=== PATIENT | female | born 1940 | race Caucasian/White ===

== ENCOUNTER 2018-01-17 10:30 | Outpatient (RCR) | payer OTHER, MEDICARE, SELFPAY | END 2018-03-27 09:36 | disposition home or self-care (01) | LOC: PT 10:30 | PROVIDERS: Visit Provider Family Medicine | DX: J44.9 Chronic obstructive pulmonary disease, unspecified (principal) | CPT/HCPCS: G0424 ==

== ENCOUNTER 2020-05-24 22:20 | Emergency (ER) | payer OTHER, MEDICARE, SELFPAY ==
[2020-05-24 22:22] VITALS: BP 186/83; PULSE 70; RESP 20; TEMP 37.1; O2SAT 99; BMI 23.6
--- NOTE | 2020-05-24 23:09 | HMH.EDNVD ---
ED Disposition Clinical Impression: Methemoglobinemia Pancreatic cancer Qualifiers: Pancreatic malignancy location: unspecified Qualified Code(s): C25.9 - Malignant neoplasm of pancreas, unspecified Disposition: Home, Self-Care Condition on Discharge: Good Instructions: DI for Nausea -- Adult Additional Instructions: fluids and see pcp for follow up and call oncology Referrals: Mohsen Maurer MD [Primary Care Provider] - - Critical Care Critical Care Time: No Attestation: On 05/24/20, the high probability of a clinically significant, sudden or life threatening deterioration of the following system(s) required my full and direct attention, intervention and personal management. The time I documented below is in addition to time spent performing reported procedures but includes the following listed in this critical care notation. Medical Decision Making - Medical Records Medical records reviewed: Yes: I reviewed the patient's medical records. - Tom Inquiry Pt receiving controlled substance: No Vital Signs: 05/24/20 22:22 05/24/20 23:22 05/24/20 23:53 Temperature 98.7 F Temperature Source Oral Pulse Rate [Right Radial] 70 63 65 Respiratory Rate 20 18 18 Blood Pressure [Right Arm] 186/83 H 169/91 H 164/88 H Blood Pressure Mean [Right Arm] 117 117 113 Blood Pressure Source [Right Arm] Automatic Cuff Blood Pressure Position [Right Arm] Supine 02 Sat by Pulse Oximetry 99 97 98 Oxygen Delivery Method Room Air - Lab Data Lab results reviewed: Yes: I reviewed the patient's lab results. Lab Results 05/24/20 23:00: WBC 6.0, RBC 4.05 L, Hgb 12.4, Hct 36.7 L, MCV 90.5, MCH 30.6, MCHC 33.9, RDW 15.1, Plt Count 325, MPV 8.5, Neut % (Auto) 78.5, Lymph % (Auto) 13.2, [place] % (Auto) 6.4, Eos % (Auto) 1.0, Baso % (Auto) 0.9, Neut # (Auto) 4.7, Lymph # (Auto) 0.8, [place] # (Auto) 0.4, Eos # (Auto) 0.1, Baso # (Auto) 0.1 05/24/20 23:00: Sodium 135 L, Potassium 3.8, Chloride 98, Carbon Dioxide 32 H, Anion Gap 8.8, BUN 22 H, Creatinine 0.50 L, Estimated Creat Clear 47, Estimated GFR 120, Est GFR ( Amer) 145, Glucose 144 H, Calcium 10.4 H, Total Bilirubin 0.5, AST 37 H, ALT 22, Alkaline Phosphatase 171 H, Total Protein 6.9, Albumin 4.0, Globulin 2.9, Albumin/Globulin Ratio 1.4, Amylase 32, Lipase 11 L Result diagrams: 05/24/20 23:00 05/24/20 23:00 Orders (Tests/Meds): ED MEDICATIONS Generic Name Dose Route Start Last Admin Trade Name Freq PRN Reason Stop Dose Admin Sodium Chloride 1,000 mls @ 999 mls/hr 05/24/20 23:00 05/24/20 23:07 Sod Chlor 0.9% 1000ml Bag IV 05/25/20 00:00 999 mls/hr .Q1H1M ROMARIO Administration Sodium Chloride 1,000 mls @ 999 mls/hr 05/25/20 00:30 Sod Chlor 0.9% 1000ml Bag IV 05/25/20 01:30 .Q1H1M ROMARIO Discontinued Medications Generic Name Dose Route Start Last Admin Trade Name Freq PRN Reason Stop Dose Admin Morphine Sulfate 4 mg 05/25/20 00:29 05/25/20 00:34 Morphine 4mg/Ml Syringe IV 05/25/20 00:30 4 mg ONCE ONE Administration Ondansetron HCl 4 mg 05/24/20 22:50 05/24/20 23:04 Zofran 4mg/2ml Vial IV 05/24/20 22:51 4 mg ONCE ONE Administration Promethazine HCl 12.5 mg 05/25/20 00:14 05/25/20 00:14 Phenergan 25mg/Ml 1ml Vial IV 05/25/20 00:15 12.5 mg ONCE ONE Administration Sodium Chloride 25 ml 05/25/20 00:14 05/25/20 00:14 Sod Chlor 0.9% 25ml Bag IV 05/25/20 00:15 25 ml ONCE ONE Administration ORDERS Category Date Time Status CT abdomen pelvis w con Stat Cat Scan 05/25/20 00:01 Ordered Nausea/Vomiting/Diarrhea HPI - General Chief complaint: Nausea/Vomiting/Diarrhea Stated complaint: Vomiting, CA patient, has port in Time Seen by Provider: 05/24/20 23:00 Mode of Arrival: Wheelchair Source of Information: Patient, Spouse, Medical Record Limitations: No Limitations Description of Symptoms (Recalled from ER Triage Doc. by RN): Pt is current chemo pt r/t pancreatic cancer and reports N/V
[2020-05-24 23:17] LABS: Basophils # 0.1 K/mm3 (0-0.2); Basophils % 0.9 % (0.1-2.0); Eosinophils # 0.1 K/mm3 (0.0-0.4); Hematocrit 36.7 % (37.0-47.0); Hemoglobin 12.4 g/dL (12.2-16.2); Lymphocytes # 0.8 K/mm3 (0.7-4.5); Lymphocytes % 13.2 % (10-50); Mean Corpuscular HGB Conc 33.9 g/dL (31.8-35.4); Mean Corpuscular Hemoglobin 30.6 pg (27.0-31.2); Mean Corpuscular Volume 90.5 fl (81-99); Mean Platelet Volume 8.5 fl (7.4-10.4); Monocytes # 0.4 K/mm3 (0.1-1.0); Monocytes % 6.4 % (1.7-9.3); Neutrophils # 4.7 K/mm3 (1.8-7.8); Neutrophils % 78.5 % (37.0-80.0); Platelet Count 325 K/mm3 (142-424); Red Blood Count 4.05 M/mm3 (4.20-5.40); Red Cell Distribution Width 15.1 % (11.5-17.5)
[2020-05-24 23:22] VITALS: BP 169/91; PULSE 63; RESP 18; O2SAT 97
[2020-05-24 23:27] LABS: Alanine Aminotransferase 22 U/L (12-78); Albumin/Globulin Ratio 1.4 (1.1-1.8); Alkaline Phosphatase 171 U/L (38-126); Amylase 32 U/L (30-110); Anion Gap 8.8 mEq/L (5-15); Aspartate Amino Transferase 37 U/L (14-36); Bilirubin,Total 0.5 mg/dl (0.2-1.3); Blood Urea Nitrogen 22 mg/dl (7-17); Calcium 10.4 mg/dl (8.4-10.2); Carbon Dioxide 32 mmol/L (22.0-30.0); Chloride 98 mmol/L (98-107); Creatinine Clearance Estimated 47 mL/min (50-200); Estimated Glomerular Filt Rate 120 ml/min (>60); GFR (African American) 145 ML/MIN (>60); Globulin 2.9 g/dL (1.3-3.2); Glucose 144 mg/dl (74-100); Lipase 11 U/L (23-300); Potassium 3.8 mmoL/L (3.5-5.1); Sodium 135 mmol/L (136-145); Total Protein,Serum 6.9 g/dl (6.3-8.2)
[2020-05-24 23:53] VITALS: BP 164/88; PULSE 65; RESP 18; O2SAT 98
[2020-05-25 00:30] VITALS: BP 171/80; PULSE 62; RESP 18; O2SAT 95
[2020-05-25 01:16] VITALS: BP 165/79; PULSE 67; RESP 18; O2SAT 96
[2020-05-25 01:21] VITALS: BP 165/79; PULSE 85; RESP 15; TEMP 36.7; O2SAT 98
== END 2020-05-25 01:29 | disposition home or self-care (01) ==
PROVIDERS: Emergency Provider Emergency Medicine; PCP Family Medicine
DX: C25.9 Malignant neoplasm of pancreas, unspecified (principal); D74.9 Methemoglobinemia, unspecified; J44.9 Chronic obstructive pulmonary disease, unspecified; I10 Essential (primary) hypertension; Z79.899 Other long term (current) drug therapy; Z88.2 Allergy status to sulfonamides
CPT/HCPCS: 80053; 82150; 83690; 85025; 96365; 96366; 96375; 99283; J2405

== ENCOUNTER 2020-06-19 05:56 | Observation (INO) | payer OTHER, MEDICARE, SELFPAY ==
[2020-06-19] VITALS (11 sets, daily range): BP systolic 158–181; BP diastolic 78–103; PULSE 77–104; RESP 15–22; TEMP 36.4–37.1; O2SAT 91–99; BMI 20.5; BMI 23.0
--- NOTE | 2020-06-19 06:09 | HMH.EDGENADL ---
ED Disposition Clinical Impression: Hypokalemia, Nausea Pancreatic cancer Qualifiers: Pancreatic malignancy location: unspecified Qualified Code(s): C25.9 - Malignant neoplasm of pancreas, unspecified Abdominal pain Qualifiers: Abdominal location: generalized Qualified Code(s): R10.84 - Generalized abdominal pain Disposition: Admitted as Observation Condition on Discharge: Fair Referrals: Mohsen Maurer MD [Primary Care Provider] - - Critical Care Critical Care Time: No Attestation: On 06/19/20, the high probability of a clinically significant, sudden or life threatening deterioration of the following system(s) required my full and direct attention, intervention and personal management. The time I documented below is in addition to time spent performing reported procedures but includes the following listed in this critical care notation. Medical Decision Making - Medical Records Medical records reviewed: Yes: I reviewed the patient's medical records. MR Comment: Seen in this emergency department on 05/24/2020 for nausea and vomiting. Diagnosed with methemoglobinemia as well. - Tom Inquiry Pt receiving controlled substance: Yes Tom was queried for this patient: No Reason not queried -: Emergent pt cond-no time Risks and benefits of using a controlled substance: were not discussed with pt by me Vital Signs: 06/19/20 06:03 Temperature 97.8 F Temperature Source Oral Pulse Rate [Right Brachial] 89 Respiratory Rate 15 Blood Pressure [Right Arm] 181/92 H Blood Pressure Mean [Right Arm] 121 Blood Pressure Source [Right Arm] Automatic Cuff Blood Pressure Position [Right Arm] Sitting 02 Sat by Pulse Oximetry 98 Oxygen Delivery Method Room Air - Lab Data Lab Results 06/19/20 06:10: WBC 11.4 H, RBC 4.29, Hgb 12.4, Hct 39.5, MCV 92.1, MCH 28.9, MCHC 31.4 L, RDW 15.1, Plt Count 385, MPV 8.4, Neut % (Auto) 86.2 H, Lymph % (Auto) 6.1 L, [place] % (Auto) 5.5, Eos % (Auto) 1.9, Baso % (Auto) 0.3, Neut # (Auto) 9.8 H, Lymph # (Auto) 0.7, [place] # (Auto) 0.6, Eos # (Auto) 0.2, Baso # (Auto) 0.0, Total Counted 100, Neutrophils % (Manual) 88 H, Band Neutrophils % 2.0, Lymphocytes % (Manual) 5 L, Monocytes % (Manual) 5, Platelet Estimate Normal, RBC Morphology Normal 06/19/20 06:10: Sodium 134 L, Potassium 3.0 L, Chloride 98, Carbon Dioxide 30, Anion Gap 9.0, BUN 21 H, Creatinine 0.50 L, Estimated Creat Clear 40, Estimated GFR 120, Est GFR ( Amer) 145, Glucose 125 H, Calcium 9.3, Total Bilirubin 0.6, AST 41 H, ALT 18, Alkaline Phosphatase 167 H, Total Protein 5.9 L, Albumin 3.3 L, Globulin 2.6, Albumin/Globulin Ratio 1.3 06/19/20 06:10: Lactate 1.1 06/19/20 06:10: Lipase 10 L Result diagrams: 06/19/20 06:10 06/19/20 06:10 Orders (Tests/Meds): ED MEDICATIONS Discontinued Medications Generic Name Dose Route Start Last Admin Trade Name Freq PRN Reason Stop Dose Admin Hydromorphone HCl 1 mg 06/19/20 06:20 06/19/20 06:22 Hydromorphone 2mg/Ml Syringe IV 06/19/20 06:21 1 mg ONCE ONE Administration Sodium Chloride 1,000 mls @ 999 mls/hr 06/19/20 06:30 06/19/20 06:23 Sod Chlor 0.9% 1000ml Bag IV 06/19/20 07:30 999 mls/hr .Q1H1M ROMARIO Administration Ondansetron HCl 4 mg 06/19/20 07:26 06/19/20 07:27 Ondansetron 4mg/2ml Vial IV 06/19/20 07:27 4 mg ONCE ONE Administration Potassium Chloride 40 meq 06/19/20 07:10 06/19/20 07:19 Potassium Chloride 20meq Tab PO 06/19/20 07:11 40 meq ONCE ONE Administration Promethazine HCl 12.5 mg 06/19/20 06:20 06/19/20 06:24 Promethazine Hcl 25mg/Ml 1ml Vial IV 06/19/20 06:21 12.5 mg ONCE ONE Administration Sodium Chloride 25 ml 06/19/20 06:20 06/19/20 06:24 Sodium Chloride 0.9% 25ml Bag IV 06/19/20 06:21 25 ml ONCE ONE Administration ORDERS Category Date Time Status Blood Culture Stat Micro 06/19/20 06:10 Received - Physician Consults Physician Consulted: Libertad Time: 08:02 Reason -: Admission Comm
[2020-06-19 06:24] LABS: Basophils % 0.3 % (0.1-2.0); Eosinophils # 0.2 K/mm3 (0.0-0.4); Eosinophils % 1.9 % (0.1-12.0); Hematocrit 39.5 % (37.0-47.0); Hemoglobin 12.4 g/dL (12.2-16.2); Lymphocytes # 0.7 K/mm3 (0.7-4.5); Lymphocytes % 6.1 % (10-50); Mean Corpuscular HGB Conc 31.4 g/dL (31.8-35.4); Mean Corpuscular Hemoglobin 28.9 pg (27.0-31.2); Mean Corpuscular Volume 92.1 fl (81-99); Mean Platelet Volume 8.4 fl (7.4-10.4); Monocytes # 0.6 K/mm3 (0.1-1.0); Monocytes % 5.5 % (1.7-9.3); Neutrophils # 9.8 K/mm3 (1.8-7.8); Neutrophils % 86.2 % (37.0-80.0); Platelet Count 385 K/mm3 (142-424); Red Blood Count 4.29 M/mm3 (4.20-5.40); Red Cell Distribution Width 15.1 % (11.5-17.5); White Blood Count 11.4 K/mm3 (4.8-10.8)
[2020-06-19 06:30] LABS: Chloride 98 mmol/L (98-107); Sodium 134 mmol/L (136-145)
[2020-06-19 06:31] LABS: MANUAL DIFFERENTIAL MANUAL DIFFERENTIAL (MANUAL DIFF)
[2020-06-19 06:33] LABS: Alanine Aminotransferase 18 U/L (12-78); Albumin Level 3.3 g/dl (3.5-5.0); Albumin/Globulin Ratio 1.3 (1.1-1.8); Alkaline Phosphatase 167 U/L (38-126); Aspartate Amino Transferase 41 U/L (14-36); Bilirubin,Total 0.6 mg/dl (0.2-1.3); Blood Urea Nitrogen 21 mg/dl (7-17); Carbon Dioxide 30 mmol/L (22.0-30.0); Creatinine Clearance Estimated 40 mL/min (50-200); Estimated Glomerular Filt Rate 120 ml/min (>60); GFR (African American) 145 ML/MIN (>60); Globulin 2.6 g/dL (1.3-3.2); Lactic Acid 1.1 mmol/L (0.7-2.1); Total Protein,Serum 5.9 g/dl (6.3-8.2)
[2020-06-19 06:34] LABS: Calcium 9.3 mg/dl (8.4-10.2); Glucose 125 mg/dl (74-100); Lipase 10 U/L (23-300)
--- NOTE | 2020-06-19 07:06 | PC.NURSE ---
report given to ryan zamudio, and jnrn
[2020-06-19 07:18] LABS: Lymphocytes % 5 % (10-50); Monocytes % 5 % (2-9); Neutrophils % 88 % (42-76); Platelet Estimate Normal; RBC Morphology Normal; Total Cells Counted 100
--- NOTE | 2020-06-19 07:32 | PC.NURSE ---
Dr Libertad nj
[2020-06-19 09:00] LABS: Coronavirus 19 IgG Antibody Negative (Negative); Coronavirus 19 IgM Antibody Negative (Negative)
--- NOTE | 2020-06-19 09:12 | P.CONPHA_ITS ---
[facility] Pharmacy VTE Monitoring - Patient Demographics Admission date: 06/19/20 Report Date: 06/19/20 Time: 09:12 Allergies/Adverse Reactions: Patient Allergies Sulfa (Sulfonamide Antibiotics) Allergy (Mild, Verified 06/01/20 14:27) simvastatin Allergy (Verified 06/01/20 15:04) rib pain lisinopril Adverse Reaction (Severe, Verified 06/01/20 14:27) Cough rivaroxaban [From Xarelto] Adverse Reaction (Unknown, Verified 06/01/20 14:27) Height: 1.63 m Weight: 54.431 kg Patient Problems: Current Active Problems Hypokalemia (Acute) Nausea (Acute) Abdominal pain (Acute) Pancreatic cancer (Acute) - VTE Risk Labs: VTE Related Lab Results Hgb 12.4 g/dL (12.2-16.2) 06/19/20 06:10 Hct 39.5 % (37.0-47.0) 06/19/20 06:10 Plt Count 385 K/mm3 (142-424) 06/19/20 06:10 BUN 21 mg/dl (7-17) H 06/19/20 06:10 Creatinine 0.50 mg/dl (0.52-1.04) L 06/19/20 06:10 Estimated Creat Clear 40 mL/min (50-200) 06/19/20 06:10 Clinical Trial Participant: No - Prophylaxis VTE Prophylaxis Ordered?: Yes Types of VTE Prophylaxis: TEDS Knee High
--- NOTE | 2020-06-19 09:44 | PC.NURSE ---
report to sheldon gonsales rn
--- NOTE | 2020-06-19 11:35 | HMH.PHAINT ---
HOME MEDICATION RECONCILIATION COMPLETED USING LIST FROM [facility] AND AFTER INTERVIEWING PT.
--- NOTE | 2020-06-19 15:02 | PC.NURSE ---
PT IS RESTING IN BED WITH FAMILY AT BEDSIDE. WHEN I WENT TO GET PT FROM THE ED THEY STATED THAT CODE STATUS WAS DISCUSSED AND SHE WANTED TO BE A DNR. DURING ADMISSION CODE STATUS WAS ADDRESSED AND PT'S STATED PT WAS VERY TIRED DOWN IN THE ED WHEN CODE STATUS WAS BROUGHT UP. PT'S ALSO STATED THAT PALLATIVE CARE WAS BROUGHT UP TO THEM WHEN HER DOCTOR'S DECIDED BACK IN THAT CHEMOTHERAPY TREATMENT WAS NO LONGER AN OPTION. . I EXPLAINED THE DNR FORM/HOSPICE CARE TO PT AND AND PT BECAME VERY TEARFUL AND STATED THAT SHE WOULD LIKE TO TALK WITH HER 2 BROTHERS BEFORE SHE MADE ANY DECISIONS ABOUT DNR STATUS OR HOSPICE CARE. PT'S HAS CALLED THE TWO BROTHERS AND THEY ARE SUPPOSE TO BE COMING TO THE HOSPITAL. PT HAS RECEIVED MORPHINE NEEDED FOR PAIN. PT IS STILL VERY NAUSEATED. PCP OFFICE NOTIFIED TO GET SOMETHING ADDITIONAL ORDERED FOR NAUSEA. PT'S FACE IS VERY CYANOTIC WHICH THEY SAY IS RELATED TO PT'S CONDITION METHEMOGLOBINEMIA. O2 SATURATION HAS MAINTAINED 91-95% ON ROOM AIR. OXYGEN AT BEDSIDE IF NEEDED. AMBULATES TO THE BATHROOM WITH 1 ASSIST. LUNG SOUNDS CLEAR. ABDOMEN DISTENDED WITH TENDERNESS ON PALPATION. HYPOACTIVE BOWEL SOUNDS. PT STATES SHE HAS A CHRONIC PROBLEM WITH CONSTIPATION.
--- NOTE | 2020-06-19 16:39 | SW/DCPLANNER ---
Addendum entered by Zaida Baltazar 06/23/20 06:37: PATIENT IS TO GO TO THE [facility]ARE [facility] IN [place].... I SPOKE WITH HER YESTERDAY SEVERAL TIMES AND HER ONLY CONCERN WAS SHE WANTED TO BE ABLE TO HAVE VISITORS... I CALLED AND THE DIRECTOR STATED SHE COULD HAVE UP TO 3 PPL TO VISIT WITH HER AT A TIME... PATIENTS ONLY CONCERN.. SHE WAS SITTING UP IN THE BED AND AT BEDSIDE... NURSE FROM [place] CAME TO EVALUATE. Addendum entered by Zaida Baltazar 06/22/20 11:04: SENT UPDATES TO [facility] IN [place] TO COORDINATE WITH FAMILY HER NEEDS AT HOME... SHE MAY DISCHARGE HOME LATER THIS AFTERNOON ONCE DR ROSS SPEAKS WITH THE HOSPICE MD... Original Note: Dr Ross has called me this afternoon to speak with patient and family regarding [facility] services. Patient and family are agreeable to hospice services at this time. I have spoke with Minoo Daigle at [facility] whom has stated that patient information has been reviewed and she would have promotions producer nurse admit this patient to [facility] services once she is discharged home. I will leave a message with nursing staff for the weekend to make sure to call on-call nurse on morning of discharge ( ). I will also leave steward/stewardess economy class a message to fax all information to [facility] at [phone]. [facility] does understand that patient will discharge over the weekend and has confirmed that promotions producer nurse for [facility] will evaluate patient on day of discharge at home. I have made patient, family and Dr Ross aware of this plan. Patients physical address is [address] [place] [address] in [place] [address].
--- NOTE | 2020-06-19 18:16 | HMH.HP ---
*Admission Date: 06/19/20 *Chief complaint: pancreatic cancer *History of present illness: Established history of cancer pancreas with aggressive course of chemo at . No feasible surgical options, and despite chemo the tumor markers escalated and tumor mass increased progressively and relentlessly. Her oncologist decided to stop aggressive treatment and palliate. She presented to the er with intractable nausea and pain. Given dilaudid this morning, and subsequent pain has been modulated by morphine. Nausea is at the moment controlled via phenergan. [facility] History Medical History: Reports:: Asthma, Cancer (pancreatic cancer), Chronic Obstructive Pulmonary Disease (COPD), Hypertension, Renal Disease Denies:: Diabetes Mellitus Type 1, Diabetes Mellitus Type 2, Internal Pacemaker, MRSA *Have you ever received a pneumonia vaccine?: No *Have you received a flu vaccine this season?: No Other Medical History: Reports: Anemia, Arthritis, Chemotherapy Laterality Cases: Bilateral: Tonsillectomy Other Surgeries: Yes: Colonoscopy, Dilation and Curettage, Tubal Ligation. No: Pacemaker Amputation: No Fractures: No - *Social History Last grade of school completed: Advanced degree Smoking Status: Never smoker Alcohol Intake: never Substance Use Type: denies use *Occupational Status:: retired Housing: house Household Members: spouse *Travel in the last 8 weeks: None Family Hx:: Hypertension, Stroke Review of Systems - Constitutional Reports anorexia, Reports body ache(s), Reports fatigue, Reports lack of energy, Reports malaise, Reports weakness, Reports weight loss - Eyes Denies change in vision - ENT Reports dry mouth, Reports headache(s) - *Cardiovascular Reports shortness of breath - *Respiratory Reports chest congestion, Reports pain with cough - *Gastrointestinal Reports abdominal pain, Reports bloating, Reports constipation, Reports cramping, Reports feeling full early, Reports nausea, Reports vomiting - *Genitourinary Denies difficulty starting urination - *Musculoskeletal Reports abnormal walking, Reports decreased muscle mass, Reports muscle weakness, Reports body aches - Integumentary/Breasts Reports change in skin color - *Neurologic Reports abnormal walking, Reports unsteadiness, Reports weakness - Psychiatric Reports lack of enjoyment, Reports change in appetite, Reports difficulty concentrating, Reports hopelessness, Reports mood swings - Endocrine Reports increased thirst, Denies increased hunger - Hematologic/Lymphatic Reports easy bruising - Allergic/Immunologic Reports GI upset with certain foods Meds Home Medications Medication Instructions Recorded Confirmed Type amlodipine 2.5 mg tablet 2.5 mg PO DAILY 04/17/20 06/19/20 History Lipase/Protease/Amylase [Zenpep Dr 1 cap PO TID 05/24/20 06/19/20 History 20,000 Unit Capsule] Morphine Sulfate [Morphine Sulf IR 7.5 mg PO Q6HP PRN 05/24/20 06/19/20 History 15mg Tab] Tiotropium [place] [Spiriva 1 inh IH DAILY 05/24/20 06/19/20 History 18mcg/puff inhaler] haloperidol 5 mg tablet 5 mg PO BID PRN #60 tab 06/01/20 06/19/20 Rx promethazine 25 mg rectal 25 mg WV Q4-6H PRN #12 each 06/01/20 06/19/20 Rx suppository Budesonide/Formoterol Fumarate 2 puffs IH BID 06/19/20 06/19/20 History [Symbicort 80-4.5 Mcg Inhaler] Dronabinol 5 mg PO BIDP PRN 06/19/20 06/19/20 History Magnesium Citrate [Magnesium 150 ml PO DAILYP PRN 06/19/20 06/19/20 History Citrate 10oz Bottle] Morphine Sulfate [Roxanol 20mg/mL 5 - 20 mg PO Q6HP PRN 06/19/20 06/19/20 History 1mL oral soln UDC] Nystatin 5 ml PO TID PRN 06/19/20 06/19/20 History OLANZapine [Olanzapine] 2.5 mg PO HS 06/19/20 06/19/20 History Allergies Allergy/AdvReac Type Severity Reaction Status Date / Time Sulfa (Sulfonamide Allergy Mild Verified 06/01/20 14:27 Antibiotics) simvastatin Allergy rib pain Verified 06/01/20 15:04 lisinopril AdvReac Severe Cough Verified 06/01/20 14:2
--- NOTE | 2020-06-19 18:32 | PC.NURSE ---
pt and family have agreed to go home with hospice when ready for discharge. pt stated she just wants to be kept comfortable. DNR signed and on the chart. PCP ordered zofran 4 mg IV and phenergan 25 mg IV q2h prn for nausea.
--- NOTE | 2020-06-19 20:20 | PC.NURSE ---
PT REFUSING TO TAKE MEDICATIONS AT THIS TIME STATING THAT HER STOMACH HURTS. DENIES ANY FURTHER AT THIS TIME. WILL CONTINUE TO OBSERVE.
[2020-06-20 04:00] VITALS: BP 176/97; PULSE 89; RESP 20; TEMP 37.1; O2SAT 98
--- NOTE | 2020-06-20 04:11 | PC.NURSE ---
Pt has slept most of the shift. Has c/o of back and generalized pain twice. Morphine administered with good effectiveness. Denies nausea. Lung sounds remain clear. No other s/sx distress noted.
[2020-06-20 05:05] VITALS: BMI 22.1
[2020-06-20 07:01] LABS: Chloride 103 mmol/L (98-107)
[2020-06-20 07:02] LABS: Potassium 3.9 mmoL/L (3.5-5.1); Sodium 134 mmol/L (136-145)
[2020-06-20 07:05] LABS: Anion Gap 9.9 mEq/L (5-15); Blood Urea Nitrogen 19 mg/dl (7-17); Calcium 8.4 mg/dl (8.4-10.2); Carbon Dioxide 25 mmol/L (22.0-30.0); Creatinine Clearance Estimated 44 mL/min (50-200); Estimated Glomerular Filt Rate 155 ml/min (>60); GFR (African American) 187 ML/MIN (>60); Glucose 71 mg/dl (74-100)
[2020-06-20 07:55] VITALS: BP 159/99; PULSE 90; RESP 20; TEMP 36.7; O2SAT 97
--- NOTE | 2020-06-20 13:14 | HMH.ACPN2 ---
Internal Medicine - PN: Subj *Date: 06/20/20 *Time: 13:23 Interval history: continues to have pain and nausea dilaudid in er yesterday helped more than the morphine formally dnr status very tearful/anxious baseline color k=3.9 ivf at 100 will escalate pain and nausea coverage Exam Vital signs and Labs for Last 24 Hours: Temp Pulse Resp BP Pulse Ox 98.0 F 90 20 159/99 H 97 06/20/20 07:55 06/20/20 07:55 06/20/20 07:55 06/20/20 07:55 06/20/20 07:55 Laboratory Results - last 24 hr 06/20/20 05:45: Sodium 134 L, Potassium 3.9 D, Chloride 103, Carbon Dioxide 25, Anion Gap 9.9, BUN 19 H, Creatinine 0.40 L, Estimated Creat Clear 44, Estimated GFR 155, Est GFR ( Amer) 187 D, Glucose 71 L D, Calcium 8.4 I & O for Last 24 hours: Intake & Output 06/17/20 06/18/20 06/19/20 06/20/20 23:59 23:59 23:59 23:59 Intake Total 595 / 1433 1438 / 1438 Balance 595 / 1433 1438 / 1438 Weight 134 lb 130 lb - Constitutional moderate distress, cachectic, chronically ill appearing, cooperative - *Routine HEENT Exam Head: Present: normocephalic. Absent: facial swelling Eye: Absent: conjunctival icterus ENT: Present: mucous membranes moist - *Routine Neck Exam Present: supple. Absent: lymphadenopathy - *Routine Respiratory Exam Present: CTA bilaterally - *Routine Cardiovascular Exam Present: RRR - *Routine Abdominal Exam Present: soft, distended, firm, mass. Absent: normoactive bowel sounds Comments: hypo bowel sounds - *Routine Extremities Exam Absent: cyanosis, clubbing, edema - *Routine Skin Exam Present: warm. Absent: rash - *Routine Neurological Exam Present: alert, oriented X3 - Routine Psychiatric Exam Present: cooperative, depressed, anxious Assessment and Plan (1) Pancreatic cancer Status: Chronic Qualifiers: Pancreatic malignancy location: unspecified Qualified Code(s): C25.9 - Malignant neoplasm of pancreas, unspecified Category: Medical Code(s): C25.9 - Malignant neoplasm of pancreas, unspecified (2) Abdominal pain Status: Acute Qualifiers: Abdominal location: generalized Qualified Code(s): R10.84 - Generalized abdominal pain Category: Medical Code(s): R10.9 - Unspecified abdominal pain (3) Hypokalemia Status: Acute Category: Medical Code(s): E87.6 - Hypokalemia (4) Nausea Status: Acute Category: Medical Code(s): R11.0 - Nausea (5) Constipation due to opioid therapy Status: Acute Category: Medical Code(s): K59.03 - Drug induced constipation; T40.2X5A - Adverse effect of other opioids, initial encounter - Assessment and plan all Dx Assessment and Plan for all problems:: symptom mitigation plan for hospice upon discharge
--- NOTE | 2020-06-20 13:16 | PC.NURSE ---
rounded with Dr. Maurer. Order for Fleets enema BID prn faxed to pharmacy.
[2020-06-20 15:22] VITALS: BP 159/93; PULSE 82; RESP 19; TEMP 36.6; O2SAT 98
--- NOTE | 2020-06-20 18:14 | PC.NURSE ---
pt has had a difficult day with pain control, nausea, vomiting, and abd distension. She is very stoic and reports that she has a high pain tolerance. Dr. Maurer explained to her that it is better to keep pain under better control. She has been agreeable to Dilaudid x 1, which has helped tremendously. ABD continues to be tender and grossly distended. She feels extreme pressure from the distension. Has had several belching episodes this afternoon. Is not passing flatulence. Has vomited twice. Phenergan IV seems to work the best. Has a right chest wall mediport that is not accessed. NS+20K @ 100mL/hr infusing via right FA PIV. Bilateral ankles with mild pitting edema. Sats above 95% on 2L NC. Dr. 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 Plan is for her to go home with [facility] as she resides in [facility]
[2020-06-20 21:22] VITALS: BP 145/94; PULSE 75; RESP 16; TEMP 36.9; O2SAT 95
--- NOTE | 2020-06-21 03:29 | PC.NURSE ---
Pt A&OX4 lungs CTA pt denies SOA. pt c/o abd pain and medicated per MAR. Abd very distended with hypoactive BS. pt ambulates to BR independently. pt has rested quietly this shift. @ bedside
[2020-06-21 04:30] VITALS: BP 157/91; PULSE 103; RESP 20; TEMP 37.2; O2SAT 92
[2020-06-21 05:00] VITALS: BMI 23.6
[2020-06-21 07:48] VITALS: BP 179/99; PULSE 83; RESP 19; TEMP 36.7; O2SAT 95
--- NOTE | 2020-06-21 13:50 | HMH.ACPN2 ---
Internal Medicine - PN: Subj *Date: 06/21/20 *Time: 13:51 Interval history: Patient relays a slightly better night last night, pain control was better with Dilaudid. Addition of the Reglan seemed to help along with the IV Phenergan. She did have mag citrate and a fleets enema, culminating in a small bowel movement. She is passing flatus, does not appear to be completely obstructed. I did not think that she would tolerate CT imaging first couple days here. I did obtain CT scan from [facility] on 04/29/2020. This showed multiple hepatic lesions consistent with metastatic disease. The largest of these was 2.4 x 2.4 cm, and growing. Segment of the right portal vein was now occluded either by compression or tumor involvement. Lesions were also noted in the left lobe of the liver. The pancreatic mass located in the body and neck was noted to be enlarged, mentions were 4.2 x 3.0. Soft to screw encasement of the celiac artery bifurcation was noted and narrowing of the portal vein was noted, along with narrowing and obliteration of the superior mesenteric vein. Venous collaterals were noted. Enlarging peripancreatic lymph nodes were noted. Also noted was a 2.5 x 2.5 cm right renal mass. The GI tract is normal in caliber. New soft tissue nodularity was seen throughout the pelvis, consistent with peritoneal carcinomatosis. Again the study was from 05-17. The patient's pain and nausea have been driving factors for this admission. She is getting better pain control with Dilaudid. It is encouraging that she is having at least some small bowel movement in the passage of flatus. We discussed about further abdominal imaging as a prognosticating tool. Delineation of intra-abdominal anatomy to help with management of future symptoms. She thinks she can hold down p.o. contrast today. Renal function has been decent, and following mostly her hypokalemia which has resolved. She is getting IV fluids at a rate of 100, she is taking some p.o. She reports that she did have a few good hours last night, so I think we will continue our current palliation strategies. I would like to get her discharged with the services of [facility] [place] once we get her acute symptoms here are more under control. I am more encouraged this morning than I was yesterday. The is with her again this morning and that makes a difference. Exam Vital signs and Labs for Last 24 Hours: Temp Pulse Resp BP Pulse Ox 98.0 F 83 19 179/99 H 95 06/21/20 07:48 06/21/20 07:48 06/21/20 07:48 06/21/20 07:48 06/21/20 07:48 I & O for Last 24 hours: Intake & Output 06/18/20 06/19/20 06/20/20 06/21/20 23:59 23:59 23:59 23:59 Intake Total 595 / 1433 2998 / 2998 1620 / 1620 Balance 595 / 1433 2998 / 2998 1620 / 1620 Weight 134 lb 130 lb 138 lb Microbiology Reports for the Last 24 Hours: Microbiology 06/19/20 06:10 Blood Blood Culture - Preliminary NO GROWTH AFTER 48 HOURS 06/19/20 06:10 Blood Blood Culture - Preliminary NO GROWTH AFTER 48 HOURS - Constitutional moderate distress, cachectic, chronically ill appearing - *Routine HEENT Exam Head: Present: normocephalic Eye: Present: EOMI, PERRL ENT: Present: mucous membranes moist - *Routine Neck Exam Present: supple. Absent: lymphadenopathy - *Routine Respiratory Exam Present: CTA bilaterally - *Routine Cardiovascular Exam Present: RRR - *Routine Abdominal Exam Present: tenderness, distended, firm, mass. Absent: guarding, obese, ostomy - *Routine Extremities Exam Absent: cyanosis, clubbing, edema - *Routine Skin Exam Present: cyanosis, mottling, warm. Absent: jaundice, rash - *Routine Neurological Exam Present: alert, oriented X3 Assessment and Plan (1) Pancreatic cancer Status: Chronic Qualifiers: Pancreatic malignancy location: unspecified Qualified Code(s): C25.9 - Malignant neoplasm
--- NOTE | 2020-06-21 14:02 | CT_ITS ---
PROCEDURE: CT ABDOMEN PELVIS WO/W CON CLINICAL INDICATION: pancreatic cancer Nausea vomiting and diarrhea COMPARISON: No exams were available for comparison TECHNIQUE: IV Contrast: 75ML OPTIRAY 350 Oral Contrast None Axial images obtained with sagittal and coronal reformats. All CT scans at the facility use one or more dose reduction, viz: automated exposure control, ma/kV adjustment per patient size (including targeted exams where dose is matched to indication, i.e. head), or iterative reconstruction technique. FINDINGS: There are no previous exams available for comparison. There are multiple nodular densities in the lung bases with at least 4 noncalcified nodules in the right lower lobe and 2 nodules in the left lower lobe the largest in the right lung base medially at 10 mm. There are trace bilateral pleural effusions. There are multiple low-attenuation lesions in the liver consistent with metastatic disease the largest in the hepatic dome measuring up to 4.8 cm. There is diffuse ascites. A large 7 x 7 x 3 cm mass is present involving the head and body of the pancreas consistent with pancreatic neoplasm. The spleen has an unremarkable appearance. Adrenal glands unremarkable. No renal or ureteral calculi. There may be a right renal mass as seen on the portal venous phase images involving the lateral aspect of the right kidney at 2 cm. Ultrasound may confirm. No hydronephrosis. There is a large mass in the rectosigmoid rib the region which measures 11 by 4 cm. There is no evidence of bowel obstruction. There are multiple omental masses consistent with metastatic disease. No acute bony findings. IMPRESSION: There is a large 7 x 7 cm pancreatic mass involving the head and body of the pancreas consistent with malignant neoplasm with metastatic disease to the lung, liver, and omentum with generalized ascites. There is also a large pelvic mass which blends with the rectum and uterus consistent with neoplasm and may be due to metastatic disease There may also be a right renal mass which could be confirmed with ultrasound which could also be related to metastatic disease. Dictated by: Dennis Aleman MD 06/22/2020 06:01 Dennis Aleman MD in [place] 06/22/2020 06:01
--- NOTE | 2020-06-21 14:16 | PC.NURSE ---
docusate was just placed in mar by . will give to patient at this time
[2020-06-21 16:00] VITALS: BP 160/88; PULSE 80; RESP 18; TEMP 36.8; O2SAT 95
--- NOTE | 2020-06-21 16:54 | PC.NURSE ---
patient has been up and down this shift. she has sat in chair and on side of bed. she has complained of nausea and pain in abdomen through out the shift. md is aware of bp being slightly elevated. rings out as needed. blue face is patient base line. has had 5 loose and at times mucousy bms this shift. abdomen is distended but it does appear less distended than earlier in shift. bowel sounds are noted.
[2020-06-21 20:00] VITALS: BP 142/78; PULSE 100; RESP 18; TEMP 36.9; O2SAT 98
[2020-06-22 04:00] VITALS: BP 169/79; PULSE 67; RESP 18; TEMP 36.8; O2SAT 97
--- NOTE | 2020-06-22 04:05 | PC.NURSE ---
pt A&OX4. pt c/o abd pain and nausea medicated per MAR. Abd very distended BS noted. pt ambulates to bathroom. pt has rested quietly this shift. @ bedside
[2020-06-22 05:00] VITALS: BMI 23.7
[2020-06-22 07:21] LABS: Chloride 104 mmol/L (98-107); Potassium 3.7 mmoL/L (3.5-5.1); Sodium 138 mmol/L (136-145)
[2020-06-22 07:24] LABS: Anion Gap 10.7 mEq/L (5-15); Blood Urea Nitrogen 19 mg/dl (7-17); Carbon Dioxide 27 mmol/L (22.0-30.0); Creatinine Clearance Estimated 47 mL/min (50-200); Estimated Glomerular Filt Rate 97 ml/min (>60); GFR (African American) 117 ML/MIN (>60); Glucose 105 mg/dl (74-100)
[2020-06-22 08:00] VITALS: BP 156/89; PULSE 109; RESP 18; TEMP 37.4; O2SAT 98
--- NOTE | 2020-06-22 10:46 | XR_ITS ---
PROCEDURE: XR CHEST 2V CLINICAL HISTORY: coughing up green, some swelling COMPARISON: CT CT ABDOMEN PELVIS WO/W CON from 06/21/2020 FINDINGS: The cardiomediastinal silhouette and pulmonary vascularity are within normal limits. There are small bilateral pleural effusions. There is a right IJ MediPort catheter present with tip in the region of SVC. Normal heart size. Patchy density is present in both midlung zones and may be due to areas of atelectasis or patchy infiltrate. No acute bony abnormalities. IMPRESSION: Small bilateral pleural effusions with patchy density in both mid lung zones which may be due to areas of atelectasis or patchy infiltrate. Dictated by: Dennis Aleman MD 06/22/2020 11:42 Dennis Aleman MD in [place] 06/22/2020 11:42
--- NOTE | 2020-06-22 10:46 | PC.NURSE ---
spoke with chelsy alba at dr. veras office about patient coughing up some green and swelling in legs. md ordered a chest xray and levaquin 500mg iv daily for 10 days. however patient is requesting to not be on levaquin because she has not done well with it in the past. will contact again
--- NOTE | 2020-06-22 11:24 | PC.NURSE ---
dr veras office returned call and stated instead of the levaquin to order azithromycin 500mg iv for 3 days
[2020-06-22 11:36] VITALS: BMI 23.7
--- NOTE | 2020-06-22 13:12 | HMH.ACPN2 ---
Internal Medicine - PN: Subj *Date: 06/22/20 *Time: 13:12 Interval history: doing a little better w/nausea small bm yesterday taking sips of clears pain modulated w/dilaudid plans underway for rachelle will speak with Dr Alexis Exam Vital signs and Labs for Last 24 Hours: Temp Pulse Resp BP Pulse Ox 99.3 F 109 H 18 156/89 H 98 06/22/20 08:00 06/22/20 08:00 06/22/20 08:00 06/22/20 08:00 06/22/20 08:00 Laboratory Results - last 24 hr 06/22/20 07:00: Sodium 138, Potassium 3.7, Chloride 104, Carbon Dioxide 27, Anion Gap 10.7, BUN 19 H, Creatinine 0.60 D, Estimated Creat Clear 47, Estimated GFR 97, Est GFR ( Amer) 117 D, Glucose 105 H, Calcium 9.0 I & O for Last 24 hours: Intake & Output 06/19/20 06/20/20 06/21/20 06/22/20 23:59 23:59 23:59 23:59 Intake Total 595 / 1433 2998 / 2998 3046 / 3046 1537 / 1537 Balance 595 / 1433 2998 / 2998 3046 / 3046 1537 / 1537 Weight 134 lb 130 lb 138 lb 138 lb 14.259 oz - Constitutional moderate distress, cachectic, chronically ill appearing, cooperative - *Routine HEENT Exam Head: Present: normocephalic, atraumatic Eye: Absent: conjunctival icterus ENT: Present: mucous membranes moist - *Routine Neck Exam Present: supple. Absent: lymphadenopathy - *Routine Respiratory Exam Present: CTA bilaterally - *Routine Cardiovascular Exam Present: RRR - *Routine Abdominal Exam Present: tenderness, distended, mass - *Routine Extremities Exam Absent: cyanosis, clubbing, edema - *Routine Skin Exam Present: cyanosis. Absent: lesions - *Routine Neurological Exam Present: alert, oriented X3 Assessment and Plan (1) Pancreatic cancer Status: Chronic Qualifiers: Pancreatic malignancy location: unspecified Qualified Code(s): C25.9 - Malignant neoplasm of pancreas, unspecified Category: Medical Code(s): C25.9 - Malignant neoplasm of pancreas, unspecified (2) Abdominal pain Status: Acute Qualifiers: Abdominal location: generalized Qualified Code(s): R10.84 - Generalized abdominal pain Category: Medical Code(s): R10.9 - Unspecified abdominal pain (3) Hypokalemia Status: Acute Category: Medical Code(s): E87.6 - Hypokalemia (4) Nausea Status: Acute Category: Medical Code(s): R11.0 - Nausea (5) Constipation due to opioid therapy Status: Acute Category: Medical Code(s): K59.03 - Drug induced constipation; T40.2X5A - Adverse effect of other opioids, initial encounter - Assessment and plan all Dx Assessment and Plan for all problems:: continue regimen ct reviewed
--- NOTE | 2020-06-22 13:21 | PC.NURSE ---
some swelling noted to bilateral extremities. stopped fluids at this time temporarily per patient request and worry she may be getting to much. will continue to monitor.
--- NOTE | 2020-06-22 15:21 | PC.NURSE ---
spoke with md about patients 3+ edema and gradual weight gain during stay. patient feels she may need lasix. also concerns of discharge. md notified. he ordered 20mg iv lasix once, and to dc fluids. stated did not plan to discharge just yet. did find out that [facility] does allow 3 visitors and this was relayed to patient.
[2020-06-22 16:00] VITALS: BP 167/94; PULSE 96; RESP 18; TEMP 37.4; O2SAT 95
--- NOTE | 2020-06-22 17:11 | PC.NURSE ---
FOR POSSIBLE TRANSFER TO [facility] TOM[facility] ORDER FOR COVID PCR ORDER PLACED. PATIENT HAS HAD A DECENT DAY. SOME COMPLAINTS OF LEG SWELLING. SOME PAIN THATS RELIEVED WITH PAIN MEDICATION AND NAUSEA MEDICATION. DID GET UP AND AMBULATE AND TAKE SHOWER. TAKES O2 ON AND OFF DURING THE DAY. USUALLY ON WHILE IN BED. NURSE FROM HOSPICE SPOKE WITH PATIENT TODAY. VITALS HAVE BEEN STABLE. WILL CONTINUE TO MONITOR.
--- NOTE | 2020-06-22 19:08 | PC.NURSE ---
report given to luca
[2020-06-22 19:56] LABS: Adenovirus,PCR Not Detected (NotDetected); Bordetella Pertussis Not Detected (NotDetected); Chlamydophila Pneumoniae, PCR Not Detected (NotDetected); Coronavirus 19, PCR Not Detected (NotDetected); Coronavirus 229E Not Detected (NotDetected); Coronavirus NL63 Not Detected (NotDetected); Coronavirus OC43 Not Detected (NotDetected); Coronovirus HKU1,PCR Not Detected (NotDetected); Human Metapneumovirus Not Detected (NotDetected); Influenza A, PCR Not Detected (NotDetected); Influenza AH1, 2009 Not Detected (NotDetected); Influenza AH1, PCR Not Detected (NotDetected); Influenza AH3,PCR Not Detected (NotDetected); Influenza B, PCR Not Detected (NotDetected); Mycoplasma Pneumoniae, PCR Not Detected (NotDetected); Parainfluenza 1, PCR Not Detected (NotDetected); Parainfluenza 2, PCR Not Detected (NotDetected); Parainfluenza 3, PCR Not Detected (NotDetected); Parainfluenza 4, PCR Not Detected (NotDetected); Respiratory Syncytial Virus Not Detected (NotDetected); Rhinovirus/Enterovirus Not Detected (NotDetected)
[2020-06-22 20:00] VITALS: BP 145/83; PULSE 95; RESP 18; TEMP 36.9; O2SAT 91; O2SAT 94
[2020-06-23 03:31] VITALS: BP 158/79; PULSE 118; RESP 18; TEMP 36.8; O2SAT 92
--- NOTE | 2020-06-23 03:58 | PC.NURSE ---
Pt is A&Ox4 and has ambulated to the BR with assist x1 and tolerated fair d/t weakness and ABD pain. Pt has been medicated 2x thus far for ABD/BACK pain and nausea. Pt has very good relief when Dilaudid and Phenergan are administered together. Pt slept for about 5 1/2 hrs very soundly. Lungs CTA, pt on 2LPM via NC t/o most of the shift. Sats 91-94% t/o shift. ABD is distended, tender, with hypoactive BS. Pt reports BM on prev shift. Skin color baseline, blueish tint to face. Pt c/o tenderness to R calf, no bruising noted although there is varicose veins, and it is slightly more edematous than LLE. No heat or hardness noted to leg. at bedside and active in pt's care. HR has been elevated after ambulation. But decreased once pain under control and resting. Call light within reach, will continue to monitor.
[2020-06-23 05:00] VITALS: BMI 24.0
[2020-06-23 07:49] VITALS: BP 146/99; PULSE 98; RESP 19; TEMP 36.2; O2SAT 96
--- NOTE | 2020-06-23 09:39 | HMH.DCSUM ---
General - General Admission date:: 06/19/20 Discharge date: 06/23/20 HPI HPI: Established history of cancer pancreas with aggressive course of chemo at . No feasible surgical options, and despite chemo the tumor markers escalated and tumor mass increased progressively and relentlessly. Her oncologist decided to stop aggressive treatment and palliate. She presented to the er with intractable nausea and pain. Given dilaudid this morning, and subsequent pain has been modulated by morphine. Nausea is at the moment controlled via phenergan. Hospital Course Hospital Course: Established history of cancer pancreas with aggressive course of chemo at . No feasible surgical options, and despite chemo the tumor markers escalated and tumor mass increased progressively and relentlessly. Her oncologist decided to stop aggressive treatment and palliate. She presented to the er with intractable nausea and pain. Given dilaudid this morning, and subsequent pain has been modulated by morphine. Nausea is at the moment controlled via phenergan. 06/21/20 Abd/Pelvis CT: FINDINGS: There are no previous exams available for comparison. There are multiple nodular densities in the lung bases with at least 4 noncalcified nodules in the right lower lobe and 2 nodules in the left lower lobe the largest in the right lung base medially at 10 mm. There are trace bilateral pleural effusions. There are multiple low-attenuation lesions in the liver consistent with metastatic disease the largest in the hepatic dome measuring up to 4.8 cm. There is diffuse ascites. A large 7 x 7 x 3 cm mass is present involving the head and body of the pancreas consistent with pancreatic neoplasm. The spleen has an unremarkable appearance. Adrenal glands unremarkable. No renal or ureteral calculi. There may be a right renal mass as seen on the portal venous phase images involving the lateral aspect of the right kidney at 2 cm. Ultrasound may confirm. No hydronephrosis. There is a large mass in the rectosigmoid rib the region which measures 11 by 4 cm. There is no evidence of bowel obstruction. There are multiple omental masses consistent with metastatic disease. No acute bony findings. IMPRESSION: There is a large 7 x 7 cm pancreatic mass involving the head and body of the pancreas consistent with malignant neoplasm with metastatic disease to the lung, liver, and omentum with generalized ascites. There is also a large pelvic mass which blends with the rectum and uterus consistent with neoplasm and may be due to metastatic disease There may also be a right renal mass which could be confirmed with ultrasound which could also be related to metastatic disease. Dictated by: Ash, 06/22/20 CXR: FINDINGS: The cardiomediastinal silhouette and pulmonary vascularity are within normal limits. There are small bilateral pleural effusions. There is a right IJ MediPort catheter present with tip in the region of SVC. Normal heart size. Patchy density is present in both midlung zones and may be due to areas of atelectasis or patchy infiltrate. No acute bony abnormalities. IMPRESSION: Small bilateral pleural effusions with patchy density in both mid lung zones which may be due to areas of atelectasis or patchy infiltrate. Dictated by: Ash 79-year-old female patient admitted to the hospital through ER for intractable vomiting and pain. She has been diagnosed with pancreatic cancer and has been changed into a palliative status, she was given Roxanol at home for pain. After multiple doses of Roxanol at home, patient reports pain was not controlled and came to the ER. After Dilaudid IVP patient did report a slight decrease in pain. She is also had increasing complaints of nausea and vomiting while inpatient, Phenergan has been used to control this somewhat. Patient pain has only been marginally controlled with Dilaudid IVP every 2 hours.
--- NOTE | 2020-06-23 09:56 | CA_ITS ---
APPROVED REPORT Right Lower Extremity Venous Study for DVT. Pharmacy Operations Manager: RICHMOND Indications Lower Extremity Pain: Right R Calf Pain, bruising. Patient states that she has bumped her RLE numerous times on bed since 06/20/20. Risk Factors Malignancy metastatic pancreatic cancer Vein Imaging CFV (R): compressive, spontaneous, phasic, augmentation FEM (R): compressive, spontaneous, phasic, augmentation POP (R): compressive, spontaneous, phasic, augmentation PTV (R): Compressible GSV (R): compressive, spontaneous, phasic, augmentation SSV (R): Compressible Peroneals (R):Compressible GAS (R): Thrombus Findings Superficial thrombophlebitis is visualized in the superficial veins of the right lower extremity. DVT seen in the right gastrocnemius and soleal veins. Conclusion Superficial thrombophlebitis is visualized in the superficial veins of the right lower extremity. DVT seen in the right gastrocnemius and soleal veins. Electronically signed by : Dennis Aleman MD 06/23/2020 13:19:00
--- NOTE | 2020-06-23 12:42 | PC.NURSE ---
pt c/o md rito berger notified with an order for zopenox 1.25mg IH q2hr prn
--- NOTE | 2020-06-23 13:27 | SW/DCPLANNER ---
Addendum entered by Magalys De Paz 06/24/20 13:53: Alexis and Bree have both spoke with family today. Patient is undecided about route to take due to pain control vs treating PE's. After extensive conversation with Alexis, patient and family a decision will be made tomorrow morning. I will follow up with patient, Alexis/Dr Maurer and [facility] tomorrow morning. Bree [phone] Addendum entered by Magalys De Paz 06/24/20 11:49: Bree is speaking with patients nurse and waiting to hear back from family regarding decisions. Addendum entered by Magalys De Paz 06/24/20 09:53: I have spoke with Bree with [facility] this morning. Bree has stated that they can NOT accept a patient on Lovenox. Bree has also stated that she will speak with family this morning then follow back up with me. Addendum entered by Magalys De Paz 06/23/20 14:26: [facility] has been cancelled for today due to additional testing by . Original Note: Currently waiting to hear back from Bree with [facility] regarding admission [facility] this patient. Patients nurse (Dionne) is aware of situation.
--- NOTE | 2020-06-23 13:44 | CT_ITS ---
PROCEDURE: CT ANGIO CHEST CLINCIAL INDICATION: SOA Shortness of air, DVT seen on recent Doppler. COMPARISON: CT CT ABDOMEN PELVIS WO/W CON from 06/21/2020 TECHNIQUE: IV Contrast: 70ML OPTIRAY 350 Axial images obtained with sagittal and coronal reformats. All CT scans at the facility use one or more dose reduction, viz: automated exposure control, ma/kV adjustment per patient size (including targeted exams where dose is matched to indication, i.e. head), or iterative reconstruction technique. FINDINGS: There are multiple small pulmonary emboli in right upper, right lower, left upper, and left lower lobe vessels. No evidence of saddle embolus. The interventricular septum is thickened. No evidence of enlarged right ventricle or significant reflux of contrast into the inferior vena cava. The the ascending aorta is prominent at 4.4 cm. No evidence of aortic dissection. Coronary artery calcification is present. The no hilar mass or adenopathy is apparent. There are scattered bilateral noncalcified pulmonary nodules in both upper and lower lobes bilaterally. A cluster of nodules is present in the left upper lobe. These measure up to 5 mm. Atelectatic changes are present in the lung bases bilaterally. Small cluster of nodules is present in the left lower lobe posteriorly measuring up to 5 mm. There are small bilateral pleural effusions. Upper abdominal images demonstrates multiple liver lesions. There is a large pancreatic mass as noted on recent abdomen CT. Ascites is present. No acute bony anomaly. IMPRESSION: 1. Multiple small bilateral pulmonary emboli. 2. 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 3. Numerous bilateral noncalcified pulmonary nodules consistent with metastatic disease with bilateral pleural effusions. 4. Upper abdominal ascites with hepatic metastasis and pancreatic mass which is incompletely imaged Dictated by: Dennis Aleman MD 06/23/2020 15:12 Dennis Aleman MD in [place] 06/23/2020 15:12
--- NOTE | 2020-06-23 14:20 | PC.NURSE ---
PATIENT WAS PRESCRIBED LOVENOX. WHEN ATTEMPTED TO GIVE INJECTION, PATIENT REFUSED MEDICATION. STATES THAT SHE AND HER DAUGHTER DISCUSSED THE MEDICATION PREVIOUSLY AND DUE TO THE SIDE EFFECTS SHE DID NOT FEEL THOUGH IT IS A GOOD CHOICE FOR HER. PATIENTS STATES THAT WHEN HIS STANDS UP SHE PUTS THE BACK OF HER LEG AGAINST THE SIDE OF THE BED SO HER SORE LEG IS FROM THAT. PATIENT ALSO REFUSED HER LIPASE. PATIENT IS CURRENTLY IN CT
[2020-06-23 15:27] VITALS: BP 152/89; PULSE 95; RESP 19; TEMP 36.6; O2SAT 96
--- NOTE | 2020-06-23 16:02 | PC.NURSE ---
Patient is resting in bed .Has been anxious for the majority of the day. Was initially anxious because ambulance was taking her to hospice and her was unable to drive her to her house to pickle solution maker a few things first. Patient was given ativan to help with anxiety and difficulty breathing. The medication relaxed patient and she has been resting comfortable since before her ct scan.
[2020-06-23 18:15] VITALS: O2SAT 91
--- NOTE | 2020-06-23 18:59 | PC.NURSE ---
Patient is alert x 4. Intermittent pain. Ambulated to restroom with and ate roughly 50% of her dinner. Pain is well controlled with medication.
[2020-06-23 19:50] VITALS: BP 163/90; PULSE 91; RESP 18; TEMP 37.1; O2SAT 99
[2020-06-24] VITALS (8 sets, daily range): BP systolic 133–172; BP diastolic 88–101; PULSE 85–101; RESP 16–20; TEMP 36.8–37.4; O2SAT 92–100; BMI 23.8
--- NOTE | 2020-06-24 04:34 | PC.NURSE ---
Pt is A&Ox4 and has rested and slept well this shift thus far. Pt responds well to combination of Dilaudid and phernergan IV for pain and nausea relief. Lungs are diminished and tight on auscultation. Pt has utilized 2LPM O2 t/o shift with SaO2 99%. Pt denies any SOA, sough, or dyspnea. Pt reports she does feel weaker that on the previous day and has had some very vivid dreams the last 2 days. ABD is distended, tight, and tender. Hypoactive BS noted. Pt reports she was able to eat very well all 3 of her meals during the previous shift. Call light within reach, will continue to monitor.
--- NOTE | 2020-06-24 10:54 | HMH.ACPN2 ---
Internal Medicine - PN: Subj *Date: 06/24/20 *Time: 09:54 Interval history: 79 YOF in bed eating breakfast. she reports she has had a few bites and is finished. O2 at 3 L w/ saturation 95%. at bedside. Cont talks w/ [facility]. Exam Vital signs and Labs for Last 24 Hours: Temp Pulse Resp BP Pulse Ox 98.4 F 88 20 150/84 H 100 06/25/20 07:50 06/25/20 10:46 06/25/20 10:47 06/25/20 07:50 06/25/20 10:47 Laboratory Results - last 24 hr 06/25/20 10:25: Chlamy pneumoniae PCR Not detected, Adenovirus (PCR) Not detected, B. pertussis DNA (PCR) Not detected, Coronavirus OC43 (PCR) Not detected, Coronavirus HKU1 (PCR) Not detected, Coronavirus 229E (PCR) Not detected, SARS-CoV-2 (PCR) Not detected, Coronavirus NL63 (PCR) Not detected, Human Metapneumovir PCR Not detected, Influenza A (H1) PCR Not detected, Influ A (H1N1/09) PCR Not detected, Influenza A (H3) PCR Not detected, Influenza Type A (PCR) Not detected, Influenza Type B (PCR) Not detected, M. pneumoniae (PCR) Not detected, Parainfluenza 1 (PCR) Not detected, Parainfluenza 2 (PCR) Not detected, Parainfluenza 3 (PCR) Not detected, Parainfluenza 4 (PCR) Not detected, RSV (PCR) Not detected, Entero/Rhino (PCR) Not detected I & O for Last 24 hours: Intake & Output 06/22/20 06/23/20 06/24/20 06/25/20 23:59 23:59 23:59 23:59 Intake Total 1537 / 1587 1010 / 1070 900 / 1345 1045 / 1045 Output Total 600 / 600 Balance 1537 / 1587 410 / 470 900 / 1345 1045 / 1045 Weight 138 lb 14.259 oz 141 lb 139 lb 5.314 oz 142 lb - Constitutional no acute distress, chronically ill appearing - *Routine HEENT Exam Head: Present: normocephalic ENT: Present: mucous membranes moist - *Routine Neck Exam Present: full ROM, trachea midline. Absent: JVD, tracheal deviation - *Routine Respiratory Exam Present: CTA bilaterally. Absent: accessory muscle use - *Routine Cardiovascular Exam Present: RRR - *Routine Abdominal Exam Present: soft, normoactive bowel sounds. Absent: tenderness, firm - *Routine Extremities Exam Present: full ROM, pulses intact. Absent: clubbing, edema - *Routine Skin Exam Present: intact, warm. Absent: jaundice - *Routine Neurological Exam Present: alert, oriented X3. Absent: altered mental status - Routine Psychiatric Exam Present: normal affect, normal thought process. Absent: auditory hallucinations, visual hallucinations Assessment and Plan (1) Pancreatic cancer Status: Chronic Qualifiers: Pancreatic malignancy location: unspecified Qualified Code(s): C25.9 - Malignant neoplasm of pancreas, unspecified Category: Medical Code(s): C25.9 - Malignant neoplasm of pancreas, unspecified (2) Abdominal pain Status: Acute Qualifiers: Abdominal location: generalized Qualified Code(s): R10.84 - Generalized abdominal pain Category: Medical Code(s): R10.9 - Unspecified abdominal pain (3) Hypokalemia Status: Acute Category: Medical Code(s): E87.6 - Hypokalemia (4) Nausea Status: Acute Category: Medical Code(s): R11.0 - Nausea (5) Constipation due to opioid therapy Status: Acute Category: Medical Code(s): K59.03 - Drug induced constipation; T40.2X5A - Adverse effect of other opioids, initial encounter - Assessment and plan all Dx Assessment and Plan for all problems:: Rounded w/ Dr. Gonzalez, all orders per Dr. Gonzalez 1. Cont talks w/ Hospice
--- NOTE | 2020-06-24 14:41 | PC.NURSE ---
Patient is currently resting comfortably in bed. Patient has had an emotional day as she has discussed her options with hospice care or continuing her current. Family is still discussing options. Per case management patient family will make a decision by tomorrow morning. Patient is on 2l nc, lung sounds diminished, drowsy but oriented to day, time, location as well as person. Patient has had a diminished appetite, states that every time she tries to eat somebody rounds and gives her bad news so she doesn't have an appetite. Patient has ambulated to toilet twice today with husbands assistance. Reported having a bowel movement. Will continue to monitor patient.
--- NOTE | 2020-06-24 19:12 | PC.NURSE ---
report given to yuan
[2020-06-25 04:00] VITALS: BP 165/105; PULSE 82; RESP 20; TEMP 36.8; O2SAT 100
[2020-06-25 05:00] VITALS: BMI 24.2
--- NOTE | 2020-06-25 05:11 | PC.NURSE ---
Pt is A&Ox4 and has c/o pain 2x thus far, pain well controlled on reassessments. Pt has c/o nausea and zofran and phenergan have been administered per MAR with good relief on reassessments. TEDS in place to BLE, +1 pitting edema to BLE. Pt has reported the tenderness to her calf has been much better today. Lungs are diminished and scattered rhonchi is noted on auscultation. Pt has continued on 2LPM O2 via NC. 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 Pt reports 2 BM's today that were soft. Pt was able to intake chicken noodle broth & saltines and had mild nausea 1 hr after eating. Pt has and family at bedside. Call light within reach, will continue to monitor.
[2020-06-25 07:50] VITALS: BP 150/84; PULSE 82; RESP 18; TEMP 36.9; O2SAT 100
--- NOTE | 2020-06-25 08:57 | P.PN_ITS ---
Internal Medicine - PN: Subj *Date: 06/25/20 *Time: 08:10 Interval history: pt has agreed to transfer to hospice care center. Pt states she is not ready to give up her fight at this time but knows she needs help controlling symptoms. Exam Vital signs and Labs for Last 24 Hours: Temp Pulse Resp BP Pulse Ox 98.4 F 82 18 150/84 H 100 06/25/20 07:50 06/25/20 07:50 06/25/20 07:50 06/25/20 07:50 06/25/20 07:50 I & O for Last 24 hours: Intake & Output 06/22/20 06/23/20 06/24/20 06/25/20 11:59 11:59 11:59 11:59 Intake Total 3203 / 3203 410 / 410 1260 / 1260 925 / 925 Output Total 600 / 600 Balance 3203 / 3203 410 / 410 660 / 660 925 / 925 Weight 138 lb 14.259 oz 141 lb 139 lb 5.314 oz 142 lb Microbiology Reports for the Last 24 Hours: Microbiology 06/19/20 06:10 Blood Blood Culture - Final NO GROWTH AFTER 5 DAYS 06/19/20 06:10 Blood Blood Culture - Final NO GROWTH AFTER 5 DAYS - Constitutional mild distress - *Routine HEENT Exam Head: Present: normocephalic Eye: Present: PERRL ENT: Present: mucous membranes moist - *Routine Neck Exam Present: supple. Absent: lymphadenopathy - *Routine Respiratory Exam Present: CTA bilaterally - *Routine Cardiovascular Exam Present: RRR - *Routine Abdominal Exam Present: soft, normoactive bowel sounds, distended. Absent: tenderness - *Routine Extremities Exam Present: normal capillary refill. Absent: cyanosis, clubbing, edema - *Routine Skin Exam Present: warm. Absent: rash Comments: blueish tent - *Routine Neurological Exam Present: alert, oriented X3 - Routine Psychiatric Exam Present: normal affect Assessment and Plan (1) Pancreatic cancer Status: Chronic Qualifiers: Pancreatic malignancy location: unspecified Qualified Code(s): C25.9 - Malignant neoplasm of pancreas, unspecified Category: Medical Code(s): C25.9 - Malignant neoplasm of pancreas, unspecified (2) Abdominal pain Status: Acute Qualifiers: Abdominal location: generalized Qualified Code(s): R10.84 - Generalized abdominal pain Category: Medical Code(s): R10.9 - Unspecified abdominal pain (3) Hypokalemia Status: Acute Category: Medical Code(s): E87.6 - Hypokalemia (4) Nausea Status: Acute Category: Medical Code(s): R11.0 - Nausea (5) Constipation due to opioid therapy Status: Acute Category: Medical Code(s): K59.03 - Drug induced constipation; T40.2X5A - Adverse effect of other opioids, initial encounter - Assessment and plan all Dx Assessment and Plan for all problems:: rounded with dr veras all orders per dr veras transfer to [facility]
--- NOTE | 2020-06-25 09:19 | SW/DCPLANNER ---
Addendum entered by Magalys De Paz 06/25/20 14:59: COVID is negative. I have spoke with Bree at [facility] whom has stated that patient can transport via ambulance to [facility] [place] today. Original Note: This patient is agreeable to discontinue all treatment/testing and discharge to [facility] [place]. I have spoke with Bree with [facility] regarding situation. Discharge summary, progress notes and labs have been faxed to [facility]. COVID has been ordered and will need to results prior to discharge. Patient will require to transport via ambulance per [facility] MD. Patient is agreeable to situation. Patient will discharge later today.
[2020-06-25 10:33] LABS: Adenovirus,PCR Not Detected (NotDetected); Bordetella Pertussis Not Detected (NotDetected); Chlamydophila Pneumoniae, PCR Not Detected (NotDetected); Coronavirus 19, PCR Not Detected (NotDetected); Coronavirus 229E Not Detected (NotDetected); Coronavirus NL63 Not Detected (NotDetected); Coronavirus OC43 Not Detected (NotDetected); Coronovirus HKU1,PCR Not Detected (NotDetected); Human Metapneumovirus Not Detected (NotDetected); Influenza A, PCR Not Detected (NotDetected); Influenza AH1, 2009 Not Detected (NotDetected); Influenza AH1, PCR Not Detected (NotDetected); Influenza AH3,PCR Not Detected (NotDetected); Influenza B, PCR Not Detected (NotDetected); Mycoplasma Pneumoniae, PCR Not Detected (NotDetected); Parainfluenza 1, PCR Not Detected (NotDetected); Parainfluenza 2, PCR Not Detected (NotDetected); Parainfluenza 3, PCR Not Detected (NotDetected); Parainfluenza 4, PCR Not Detected (NotDetected); Respiratory Syncytial Virus Not Detected (NotDetected); Rhinovirus/Enterovirus Not Detected (NotDetected)
[2020-06-25 10:46] VITALS: PULSE 86; PULSE 88
[2020-06-25 10:47] VITALS: RESP 20; O2SAT 100
--- NOTE | 2020-06-25 14:52 | PC.NURSE ---
REPORT CALLED TO MARYANNE CRAWFORD AT [facility].
== END 2020-06-25 16:02 | disposition hospice, home (50) ==
LOC: ER 08:01 → 2ND 14:51
PROVIDERS: Admitting Provider Family Medicine; Emergency Provider Emergency Medicine; PCP Family Medicine; Visit Provider Family Medicine
DX: C25.1 Malignant neoplasm of body of pancreas (principal); J44.9 Chronic obstructive pulmonary disease, unspecified; I10 Essential (primary) hypertension; E87.6 Hypokalemia; Z88.2 Allergy status to sulfonamides; Z88.8 Allergy status to other drugs, medicaments and biological substances; Z79.899 Other long term (current) drug therapy; Z79.52 Long term (current) use of systemic steroids; Z79.891 Long term (current) use of opiate analgesic; C78.7 Secondary malignant neoplasm of liver and intrahepatic bile duct; C77.2 Secondary and unspecified malignant neoplasm of intra-abdominal lymph nodes; C79.00 Secondary malignant neoplasm of unspecified kidney and renal pelvis; R64 Cachexia; Z68.24 Body mass index [BMI] 24.0-24.9, adult; K59.03 Drug induced constipation; T40.2X5A Adverse effect of other opioids, initial encounter
CPT/HCPCS: 36415; 71046; 71275; 74178; 80048; 80053; 83605; 83690; 85007; 85025; 86328; 87040; 87581; 87633; 87798; 93971; 94640; 96365; 96375; 96376; 99284; G0378; J2405; Q9967; U0003